=== PATIENT | female | born 1980 | race Caucasian/White ===

== ENCOUNTER 2017-02-03 05:58 | Emergency (ER) | payer MEDICAID ==
[2017-02-03] MEDS ORDERED: ONDANSETRON 4 MG/2 ML VIAL IVP STA ×2 (06:12→08:44)
[2017-02-03] MEDS ORDERED: MORPHINE 2 MG/ML SYRINGE IVP STA ×2 (06:12→06:45)
[2017-02-03] MEDS ORDERED: SODIUM CHLORIDE 0.9% 1,000 ML IV ONE (06:12)
[2017-02-03] MEDS ORDERED: MORPHINE 2 MG/ML SYRINGE ONE ×2 (06:14→06:46)
[2017-02-03] MEDS ORDERED: ONDANSETRON 4 MG/2 ML VIAL ONE ×2 (06:14→08:13)
[2017-02-03 06:25] LABS: BASOPHILS % (AUTO) 0.2 %; EOSINOPHILS # (AUTO) 0.1 10^3/uL (0.0-0.7); EOSINOPHILS % (AUTO) 0.9 %; HCT - HEMATOCRIT 47.6 % (37.0-47.0); HGB - HEMOGLOBIN 16.5 g/dL (12.0-16.0); LYMPHOCYTES # (AUTO) 0.5 10^3/uL (1.5-3.5); LYMPHOCYTES % (AUTO) 3.7 %; MEAN CORPUSCULAR HEMOGLOBIN 32.5 pg (27.0-31.0); MEAN CORPUSCULAR HGB CONC 34.8 g/dL (32.0-36.0); MEAN CORPUSCULAR VOLUME 93.6 fL (81.0-99.0); MEAN PLATELET VOLUME 8.5 fL (7.9-10.8); MONOCYTES # (AUTO) 0.7 10^3/uL (0.0-1.0); MONOCYTES % (AUTO) 5.3 %; NEUTROPHILS # (AUTO) 12.6 10^3/uL (1.5-6.6); NEUTROPHILS % (AUTO) 89.9 %; NUCLEATED RED BLOOD CELLS AUTO 0.1 /100WBC; RED BLOOD COUNT 5.08 10^6/uL (4.20-5.40); RED CELL DISTRIBUTION WIDTH 12.8 % (12.0-15.0)
[2017-02-03 06:35] LABS: ALBUMIN/GLOBULIN RATIO 1.6 (1.0-2.2); CALCIUM 9.6 mg/dL (8.5-10.3); CREATININE 0.8 mg/dL (0.4-1.0); POTASSIUM 3.7 mmol/L (3.5-5.0); TOTAL PROTEIN 7.7 g/dL (6.7-8.2)
[2017-02-03 07:05] LABS: BILIRUBIN,URINE NEGATIVE (NEGATIVE); PH,URINE 7.5 PH (5.0-7.5)
[2017-02-03 07:15] LABS: HCG UR QUAL NEGATIVE; UA w/ MICROSCOPIC CHARGE YES
[2017-02-03 07:16] LABS: UR CULTURE IF IND NOT INDICATED
[2017-02-03] MEDS ORDERED: HYDROmorphone 1 MG/ML SYRINGE IVP STA (07:18)
--- NOTE | 2017-02-03 07:20 | ED Physician Documentation ---
History of Present Illness - Stated complaint Stated Complaint: ABDOMINAL PAIN - Chief complaint Chief Complaint: Abd Pain - Additonal information Additional information: hx from pt 36 y/o f no prior surgery no travel no bad food no sick contacts upper abd pain NV since midnight no fever + chills no diarrhea no dysuria no hematuria pain is constant with waves of more severe pain rad to mid right back and to chest Review of Systems Constitutional: reports: Chills. denies: Fever Throat: denies: Sore throat Cardiac: reports: Chest pain / pressure (rad from abd) Respiratory: denies: Dyspnea, Cough GI: reports: Abdominal Pain, Nausea, Vomiting. denies: Diarrhea : denies: Dysuria, Hematuria Endocrine: denies: Easy bruising / bleeding Immunocompromised: denies: Immunocompromised PD PAST MEDICAL HISTORY - Past Surgical History Past Surgical History: No - Present Medications Home Medications: Ambulatory Orders Medication Instructions Recorded Confirmed Ondansetron Odt [Zofran] 4 mg TL Q6H PRN #10 tablet 02/03/17 Promethazine Supp [Phenergan Supp] 25 mg [place] Q6H PRN #10 supp 02/03/17 Sucralfate 1 gm PO ACHS #120 tablet 02/03/17 raNITIdine [Zantac] 150 mg PO BID #60 tablet 02/03/17 - Allergies Allergies/Adverse Reactions: Allergies Allergy/AdvReac Type Severity Reaction Status Date / Time Penicillins Allergy Unknown Verified 03/11/15 10:15 - Social History Does the pt smoke?: Yes Smoking Status: Current every day smoker Does the pt drink ETOH?: Yes Does the pt have substance abuse?: No - POLST Patient has POLST: No PD ED PE NORMAL - Vitals Vital signs reviewed: Yes - General General: Alert and oriented X 3 - HEENT HEENT: PERRL - Neck Neck: Supple, no meningeal sign - Cardiac Cardiac: RRR - Respiratory Respiratory: No respiratory distress, Clear bilaterally - Abdomen Abdomen: Soft, Other (TTP across upper abd mid to ruq > luq) - Derm Derm: Normal color - Extremities Extremities: No deformity - Neuro Neuro: Alert and oriented X 3 Results - Vitals Vitals: Vital Signs - 24 hr 02/03/17 02/03/17 02/03/17 06:07 06:19 06:42 Temperature 36.5 C Heart Rate 98 101 H 98 Respiratory 20 22 16 Rate Blood Pressure 125/86 H 129/108 H 112/76 O2 Saturation 100 100 100 02/03/17 02/03/17 02/03/17 07:13 07:33 08:17 Temperature Heart Rate 99 100 100 Respiratory 16 16 99 H Rate Blood Pressure 96/74 98/60 100/58 L O2 Saturation 100 100 02/03/17 10:04 Temperature Heart Rate 82 Respiratory 20 Rate Blood Pressure 108/73 O2 Saturation 100 Oxygen O2 Source Room air - Labs Labs: Laboratory Tests 02/03/17 02/03/17 02/03/17 06:13 06:13 06:13 WBC 14.0 H RBC 5.08 Hgb 16.5 H Hct 47.6 H MCV 93.6 MCH 32.5 H MCHC 34.8 RDW 12.8 Plt Count 209 MPV 8.5 Neut # 12.6 H Lymph # 0.5 L Desha # 0.7 Eos # 0.1 Baso # 0.0 Absolute Nucleated RBC 0.01 Nucleated RBCs 0.1 Sodium 139 Potassium 3.7 Chloride 106 Carbon Dioxide 21 Anion Gap 12.0 BUN 16 Creatinine 0.8 Estimated GFR (MDRD) 82 L Glucose 128 H Lactic Acid Calcium 9.6 Total Bilirubin 1.0 AST 21 ALT 22 Alkaline Phosphatase 56 Total Protein 7.7 Albumin 4.7 Globulin 3.0 Albumin/Globulin Ratio 1.6 Lipase 30 Serum HCG, Qual NEGATIVE Urine Color Urine Clarity Urine pH Ur Specific [place] Urine Protein Urine Glucose (UA) Urine Ketones Urine Occult Blood Urine Nitrite Urine Bilirubin Urine Urobilinogen Ur Leukocyte Esterase Urine RBC Urine WBC Ur Squamous Epith Cells Urine Bacteria Ur Microscopic Review Urine Culture Comments Urine HCG, Qual 02/03/17 02/03/17 06:28 06:50 WBC RBC Hgb Hct MCV MCH MCHC RDW Plt Count MPV Neut # Lymph # Desha # Eos # Baso # Absolute Nucleated RBC Nucleated RBCs Sodium Potassium Chloride Carbon Dioxide Anion Gap BUN Creatinine Estimated GFR (MDRD) Glucose Lactic Acid 1.7 Calcium Total Bilirubin AST ALT Alkaline Phosphatase Total Protein Albumin Globulin Albumin/Globulin Ratio Lipase Serum HCG, Qual Urine Color YELLOW Urine Clarity HAZY Urine pH 7.5 Ur Specific [place] 1.020 Urine Protein NEGATIVE Urine Glucose (UA) NEGATIVE Urine Ketones 40 H Urine Occult Blood NEGATIVE Urine Nitrite NEGATIVE Urine Bilirubin NEGATIVE Urine Urobilinogen 0.2 (NORMAL) Ur Leukocyte Esterase SMALL H Urine RBC 0-5 Urine WBC 6-10 H Ur Squamous Epith Cells MOD Squamous H Urine Bacteria Few Ur Microscopic Review INDICATED Urine Culture Comments NOT INDICATED Urine HCG, Qual NEGATIVE - Rads (name of study) ruq sono Radiology: See rad report (nl no gallstones) CT abd pelvis Radiology: See rad report (fluid dilated loops small bowel and non dilated right hemicolon ? enteritis but no SBO, nl appendix, 2.3 cm collapsing left ovarian cyst or follicel, 13 cm splenomegaly) Departure - Departure Disposition: Home, Self Care Clinical Impression: Abdominal pain Qualifiers: Abdominal location: upper abdomen, unspecified Qualified Code(s): R10.10 - Upper abdominal pain, unspecified Vomiting Qualifiers: Vomiting type: unspecified Vomiting Intractability: non-intractable Nausea presence: with nausea Qualified Code(s): R11.2 - Nausea with vomiting, unspecified Condition: Good Instructions: ED Gastritis, ED Epigastric Pain [facility] Follow-Up: Edgardo Dodd MD [Provider Admit Priv/Credential] - (for further evaluation and consideration of endoscopy ) Prescriptions: Promethazine Supp [Phenergan Supp] 25 mg VT Q6H PRN #10 supp PRN Reason: vomiting Sucralfate 1 gm PO ACHS #120 tablet raNITIdine [Zantac] 150 mg PO BID #60 tablet Ondansetron Odt [Zofran] 4 mg TL Q6H PRN #10 tablet PRN Reason: Nausea / Vomiting Comments: Both the CT scan and the ultrasound were reassuring. No bowel blockage/perforation/abscess, no gallstones no pancreatitis, no kidney stones or kidney infection, no aneurysm The only abnormalities noted were an enlarged spleen (that was not very tender on exam) and a collapsing left ovarian cyst (which would not be likely to cause upper abdominal pain) Given the reassuring work up ruling out emergent problems needing surgery admission or antibiotics, I think it is safe for you to go home from the ER for today - but you will need follow up for further evaluation such as endoscopy to continue to try and determine what is causing you to feel so bad. You may have a stomach virus or gastritis, but it is important to follow up for a recheck and to pursue further work up if not improving with the medications I prescribed Forms: Activity restrictions
[2017-02-03] MEDS ORDERED: HYDROmorphone 1 MG/ML SYRINGE ONE (07:27)
--- NOTE | 2017-02-03 08:36 | Ultrasound Preliminary Report ---
Exam: US Abdomen Limited IMPRESSION: Normal. No cholelithiasis or cholecystitis. [facility] SITE ID: [id number]
--- NOTE | 2017-02-03 08:39 | Ultrasound Report ---
EXAM: ABDOMEN ULTRASOUND LIMITED, RUQ EXAM DATE: 02/03/2017 08:05 AM. CLINICAL HISTORY: Upper abdominal pain radiating to R back with nausea and vomiting, evaluate gallbla dder. COMPARISON: None. TECHNIQUE: Real-time scanning was performed with static images obtained. Philosophy Instructor notes patient is on pain medication. FINDINGS: Liver: Normal in size and echotexture. 16.6 cm. Main portal vein flow: Hepatopetal. Gallbladder: Normal. No stones, wall thickening, or sonographic Jensen's sign. Pain medication could limit evaluation of sonographic Jensen sign. Biliary System: CBD measures 5 mm. No intrahepatic or extrahepatic ductal dilatation. Other: Right kidney measured 11.16 longitudinally. No right hydronephrosis. IMPRESSION: Normal. No cholelithiasis or cholecystitis. [facility] Referring Provider Line: [phone] SITE ID: [id number]
[2017-02-03] MEDS ORDERED: SUCRALFATE 1 GM/10 ML UDC PO STA (09:11)
[2017-02-03] MEDS ORDERED: FAMOTIDINE 20 MG/50 ML 50 ML IV ONE ×2 (09:11→09:13)
[2017-02-03] MEDS ORDERED: SUCRALFATE 1 GM/10 ML UDC ONE (09:13)
[2017-02-03] MEDS ORDERED: PROMETHAZINE 25 MG/1 ML VIAL ONE (09:18)
[2017-02-03] MEDS ORDERED: PROMETHAZINE INJ 25 MG in SODIUM CHLORIDE 0.9% 50 ML IV STA (09:22)
[2017-02-03] MEDS ORDERED: IOPAMIDOL-300 100 ML VIAL IVP ONE (10:20)
--- NOTE | 2017-02-03 10:50 | CT Preliminary Report ---
Exam: CT Abdomen/Pelvis W/ IMPRESSION: Fluid is noted filling the distal small bowel loops and nondilated right hemicolon. Question enteriti s. No bowel obstruction evident. Normal appendix. A 2.3 cm collapsing left ovarian cyst or follicle. 13 cm splenomegaly. [facility] SITE ID: [id number]
[2017-02-03 12:13] VITALS: BP 101/60
--- NOTE | 2017-02-03 12:37 | CT Report ---
EXAM: CT ABDOMEN AND PELVIS EXAM DATE: 02/03/2017 10:19 AM. CLINICAL HISTORY: Severe upper abdominal pain, elevated WBC, negative sonogram. COMPARISONS: None. TECHNIQUE: Routine helical CT imaging was performed through the abdomen and pelvis. IV contrast: 100 mL [id number]. Enteric contrast: No. Reconstructions: Coronal and sagittal. In accordance with CT protocol optimization, one or more of the following dose reduction techniques w ere utilized for this exam: automated exposure control, adjustment of mA and/or KV based on patient s ize, or use of iterative reconstructive technique. FINDINGS: Lung Bases: Unremarkable. Liver: Normal. No masses. Gallbladder/Bile Ducts: Unremarkable. Spleen: 13 cm splenomegaly. Pancreas: Normal. Adrenal Glands: Normal. Kidneys: Several small hypodensities are too small to characterize. Probable cysts.. No suspicious ma sses or hydronephrosis. Peritoneal Cavity/Bowel: Fluid-filled, nondilated distal small bowel loops and right hemicolon. The a ppendix is well visualized and normal. Pelvic Organs: 2.3 cm collapsing left ovarian cyst or follicle. Unremarkable uterus. Bladder is colla psed. Vasculature: No aneurysms or other significant abnormality. Bones: No significant abnormality. Other: None. IMPRESSION: 1. Fluid is noted filling the distal small bowel loops and nondilated right hemicolon. Question enter itis. No bowel obstruction evident. 2. Normal appendix. 3. A 2.3 cm collapsing left ovarian cyst or follicle. 4. 13 cm splenomegaly. [facility] Referring Provider Line: [phone] SITE ID: [id number]
== END 2017-02-03 12:19 | disposition home or self-care (01) ==
LOC: ED 05:58
DX: R10.10 Upper abdominal pain, unspecified (principal); R11.2 Nausea with vomiting, unspecified; F17.200 Nicotine dependence, unspecified, uncomplicated
CPT/HCPCS: 36415; 74177; 76705; 80053; 81001; 81025; 83605; 83690; 84703; 85025; 96361; 96374; 96375; 96376; 99284; J1170; Q9967; 81003; 87086

== ENCOUNTER 2020-04-15 15:45 | Emergency (ER) | payer SELFPAY ==
[2020-04-15 16:09] VITALS: BP 128/87
[2020-04-15] MEDS ORDERED: BUFFERED LIDOCAINE 10 ML SYRINGE SUBQ STA (16:17)
--- NOTE | 2020-04-15 16:49 | ED Physician Documentation ---
PD HPI SKIN - Stated complaint Stated Complaint: RT ARMPIT WOUND PX - Chief complaint Chief Complaint: Wound - History obtained from History obtained from: Patient, Family - History of Present Illness Timing - onset: Yesterday Timing - duration: Days (1) Timing - details: Gradual onset, Still present Location: Other (right axilla) Quality / character: Painful, Burning, Discolored, Other (bleeding) Associated symptoms: No: Fever, Myalgias, Joint pain, Headache, Facial swelling, Dyspnea, Abd pain, N/V/D Similar symptoms before: Has not had sx before Recently seen: Not recently seen - Additional information Additional information: 39-year-old female has a skin tag under her right axilla that yesterday swelled became super painful and the tip of the turned black and then began to bleed. She had a very rough night last night and continues to have significant pain associated with it she was unable to go to work today secondary to the pain associated with this. 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 : None HEENT: None Psych: None Musculoskeletal: None Derm: None - Past Surgical History Past Surgical History: No - Present Medications Home Medications: Ambulatory Orders Medication Instructions Recorded Confirmed Ondansetron Odt [Zofran] 4 mg TL Q6H PRN #10 tablet 02/03/17 Promethazine Supp [Phenergan Supp] 25 mg [place] Q6H PRN #10 supp 02/03/17 Sucralfate 1 gm PO ACHS #120 tablet 02/03/17 raNITIdine [Zantac] 150 mg PO BID #60 tablet 02/03/17 - Allergies Allergies/Adverse Reactions: Allergies Allergy/AdvReac Type Severity Reaction Status Date / Time Penicillins Allergy Unknown Verified 04/15/20 16:01 - Social History Does the pt smoke?: Yes Smoking Status: Current every day smoker Does the pt drink ETOH?: Yes ETOH Use: Liquor Does the pt have substance abuse?: No - Immunizations Immunizations are current?: No Immunizations: TDAP >10years/unknown - POLST Patient has POLST: No PD ED PE NORMAL - Vitals Vital signs reviewed: Yes (hypertensive ) - General General: Alert and oriented X 3, Well developed/nourished, Other (appears to be in pain ) - HEENT HEENT: Atraumatic, PERRL, EOMI - Respiratory Respiratory: No respiratory distress - Derm Derm: Normal color, Warm and dry - Extremities Extremities: No deformity, Other (In the right axilla there is a pedunculated skin tag the tip of this is infarcted and has evidence of bleeding. The skin tag is markedly tender there is no mass under the skin in the axilla and no drainage from the area. The area does not look infected in any way.) - Neuro Neuro: Alert and oriented X 3, car runner 2-12 intact, No motor deficit, No sensory deficit, Normal speech Eye Opening: Spontaneous Motor: Obeys Commands Verbal: Oriented GCS Score: 15 - Psych Psych: Normal mood, Normal affect Results - Vitals Vitals: Vital Signs - 24 hr 04/15/20 04/15/20 15:57 16:08 Temperature 36.9 C Heart Rate 85 78 Respiratory 16 18 Rate Blood Pressure 130/87 H 128/87 H O2 Saturation 96 99 Oxygen O2 Source Room air Procedures - General procedure General procedure: Skin tag removal: With the use of Hibiclens the area around the skin tag was cleansed as well as skin tag itself the area is infiltrated with 1% lidocaine bu ffered with bicarbonate and the area is rinsed with saline draped in a sterile fashion the pedunculated skin tag is grasped with a forceps and with sharp dissection at the base this is cut off from the skin. Patient tolerates this well and a single suture of 5-0 Ethilon is placed to close the wound with good closure. When the lidocaine wears off the patient has no pain.Laceration is 1 cm PD MEDICAL DECISION MAKING - ED course Complexity details: considered differential, d/w patient, d/w family ED course: 39-year-old female with a torsed pedunculated skin tag that has infarcted had significant pain associated with this and after removal of the skin tag she is pain-free. Departure - Departure Disposition: 01 Home, Self Care Clinical Impression: Inflamed acrochordon Condition: Stable Instructions: ED Laceration All Follow-Up: [facility] [Provider Group] Comments: The suture should be removed in 7 days.
== END 2020-04-15 17:13 | disposition home or self-care (01) ==
LOC: ED 15:45
DX: L91.8 Other hypertrophic disorders of the skin (principal); L08.89 Other specified local infections of the skin and subcutaneous tissue; F17.200 Nicotine dependence, unspecified, uncomplicated
CPT/HCPCS: 11200; 99281; 99282

== ENCOUNTER 2021-04-03 08:30 | Outpatient (CLI) | payer SELFPAY | END 2021-04-03 23:59 | disposition home or self-care (01) | LOC: LAB.R 08:30 | PROVIDERS: ATTEND Physician Assistant Medical | DX: R05 Cough (principal); Z20.822 Contact with and (suspected) exposure to COVID-19 ==

== ENCOUNTER 2021-12-28 17:16 | Emergency (ER) | payer SELFPAY ==
[2021-12-28] MEDS ORDERED: ONDANSETRON 4 MG/2 ML VIAL IVP STA (17:31)
[2021-12-28] MEDS ORDERED: KETOROLAC 15 MG/ML VIAL IVP STA (17:31)
[2021-12-28] MEDS ORDERED: SODIUM CHLORIDE 0.9% 1,000 ML IV STA (17:31)
[2021-12-28] MEDS ORDERED: HYDROmorphone 1 MG/ML CARPUJECT IVP STA (17:31)
--- NOTE | 2021-12-28 17:33 | ED Physician Documentation ---
PD HPI ABD PAIN - Stated complaint Stated Complaint: ABD & BACK PX - Chief complaint Chief Complaint: Abd Pain - History obtained from History obtained from: Patient - Additional information Additional information: Gradual onset severe diffuse abdominal pain and left flank pain starting yesterday but much worse today. It is associated with temperature of 102 at home. She said diarrhea. No urinary complaints or hematuria. She has a history of kidney stones and kidney infections as well as ulcers. No history of abdominal surgeries. 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 : None HEENT: None Psych: None Musculoskeletal: None Derm: None - Past Surgical History Past Surgical History: No - Present Medications Home Medications: Ambulatory Orders Medication Instructions Recorded Confirmed Ondansetron Odt [Zofran] 4 mg TL Q6H PRN #10 tablet 02/03/17 Promethazine Supp [Phenergan Supp] 25 mg [place] Q6H PRN #10 supp 02/03/17 Sucralfate 1 gm PO ACHS #120 tablet 02/03/17 raNITIdine [Zantac] 150 mg PO BID #60 tablet 02/03/17 Omeprazole 40 mg PO DAILY #30 cap 12/28/21 Oxycodone HCl/Acetaminophen 1 - 2 each PO Q6H PRN #14 tablet 12/28/21 [Percocet 5-325 mg Tablet] - Allergies Allergies/Adverse Reactions: Allergies Allergy/AdvReac Type Severity Reaction Status Date / Time Penicillins Allergy Unknown Verified 12/28/21 17:21 - Social History Does the pt smoke?: Yes Smoking Status: Current every day smoker Does the pt drink ETOH?: Yes Does the pt have substance abuse?: No - Immunizations Immunizations are current?: No Immunizations: TDAP >10years/unknown - POLST Patient has POLST: No PD ED PE NORMAL - Vitals Vital signs reviewed: Yes - General General: Other (She appears uncomfortable and is clearly in pain alert cooperative and oriented though.) - HEENT HEENT: PERRL, EOMI - Neck Neck: Supple, no meningeal sign, No bony TTP - Cardiac Cardiac: Other (Tachycardic, regular, no murmur) - Respiratory Respiratory: No respiratory distress, Clear bilaterally - Abdomen Abdomen: Normal bowel sounds, Soft, Other (Mild diffuse abdominal tenderness but severe left flank tenderness.) - Derm Derm: Normal color, Warm and dry - Extremities Extremities: No edema, No calf tenderness / cord - Neuro Neuro: Alert and oriented X 3, Normal speech Results - Vitals Vitals: Vital Signs - 24 hr 12/28/21 12/28/21 12/28/21 17:18 18:03 19:00 Temperature 37.9 C 37.1 C Heart Rate 110 H 95 94 Respiratory 20 20 Rate Blood Pressure 147/99 H 136/98 H 108/85 H O2 Saturation 94 98 98 Oxygen O2 Source Room air - Labs Labs: Laboratory Tests 12/28/21 12/28/21 12/28/21 17:25 17:32 17:32 WBC 10.0 RBC 4.18 L Hgb 13.7 Hct 38.8 MCV 92.8 MCH 32.8 H MCHC 35.3 RDW 12.1 Plt Count 213 MPV 9.2 Neut # (Auto) 7.9 H Lymph # (Auto) 1.[address] # (Auto) 0.6 Eos # (Auto) 0.1 Baso # (Auto) 0.0 Absolute Nucleated RBC 0.00 Nucleated RBC % 0.0 Sodium 135 Potassium 3.3 L Chloride 103 Carbon Dioxide 19 L Anion Gap 13.0 BUN 12 Creatinine 0.7 Estimated GFR (MDRD) 93 Glucose 106 H Lactic Acid Calcium 9.0 Total Bilirubin 0.7 AST 23 ALT 20 Alkaline Phosphatase 75 Total Protein 7.4 Albumin 4.2 Globulin 3.2 Albumin/Globulin Ratio 1.3 Lipase 30 Urine Color YELLOW Urine Clarity HAZY Urine pH 6.0 Ur Specific [place] >=1.030 H Urine Protein NEGATIVE Urine Glucose (UA) NEGATIVE Urine Ketones NEGATIVE Urine Occult Blood LARGE H Urine Nitrite NEGATIVE Urine Bilirubin NEGATIVE Urine Urobilinogen 0.2 (NORMAL) Ur Leukocyte Esterase NEGATIVE Urine RBC 6-10 H Urine WBC 0-3 Ur Squamous Epith Cells FEW Squamous Amorphous Sediment Few Urine Bacteria Few Ur Microscopic Review INDICATED Urine Culture Comments NOT INDICATED Urine HCG, Qual NEGATIVE 12/28/21 17:32 WBC RBC Hgb Hct MCV MCH MCHC RDW Plt Count MPV Neut # (Auto) Lymph # (Auto) [place] # (Auto) Eos # (Auto) Baso # (Auto) Absolute Nucleated RBC Nucleated RBC % Sodium Potassium Chloride Carbon Dioxide Anion Gap BUN Creatinine Estimated GFR (MDRD) Glucose Lactic Acid 1.3 Calcium Total Bilirubin AST ALT Alkaline Phosphatase Total Protein Albumin Globulin Albumin/Globulin Ratio Lipase Urine Color Urine Clarity Urine pH Ur Specific [place] Urine Protein Urine Glucose (UA) Urine Ketones Urine Occult Blood Urine Nitrite Urine Bilirubin Urine Urobilinogen Ur Leukocyte Esterase Urine RBC Urine WBC Ur Squamous Epith Cells Amorphous Sediment Urine Bacteria Ur Microscopic Review Urine Culture Comments Urine HCG, Qual - Rads (name of study) CT abdomen pelvis with IV contrast showing bilateral ovarian cysts likely hemorrhagic on the right and hepatosplenomegaly Radiology: EMP read contemporaneously PD MEDICAL DECISION MAKING - ED course ED course: 41-year-old woman presents with days worth of abdominal and flank pain. Work-up shows ovarian cysts and hepatosplenomegaly, but no surgical emergency. She is feeling much better after meds and close follow-up was advised. We discussed the incidental findings on CT and follow-up for those as well. Departure - Departure Disposition: Home, Self Care Clinical Impression: Ovarian cyst, Abdominal pain Condition: Good Record reviewed to determine appropriate education?: Yes Instructions: ED Abdominal Pain Female Non-Specific Abdominal Pain Prescriptions: Omeprazole 40 mg PO DAILY #30 cap Oxycodone HCl/Acetaminophen [Percocet 5-325 mg Tablet] 1 - 2 each PO Q6H PRN #14 tablet PRN Reason: pain Comments: I sent prescriptions electronically to [email or web address] in [place]. As discussed work-up shows today basically normal blood work, some blood in your urine but no signs of infection. CAT scan showing ovarian cysts with what looks like a bleeding cyst on the right and a large liver and spleen. Follow-up with your primary care physician within the week to discuss, further work-up may be necessary to assess why you have a large liver and spleen. Also spent I suspect they may want to check an ultrasound of your pelvis in about 6 weeks to make sure the ovarian cysts have resolved. Return if worsening or if your symptoms change. I am prescribing a short course of narcotic pain medication for you. These are potentially dangerous and addictive medications that should be used carefully. These medications may constipate you. Take an [id number] stool softener (docusate) twice daily with plenty of water while taking these medications. If you go 24 hours without a bowel movement, take [id number] miralax, per package instructions. Do not drink or drive while taking these medications. If you received narcotic or sedating medications while in the emergency department, do not drive for 24 hours. Store this medication in a safe, secure place and out of reach of children. It is a violation of federal law to give or sell this medication to another person or to use in a manner other than prescribed. The ED will not refill narcotic prescriptions, including prescriptions lost or stolen. To dispose of unwanted medications: 1. [facility] at [address] in [place] has a medication drop box. They accept prescription medications (in pill form) Friday through Friday 9:00 a.m. to 5:00 p.m. 2. The [facility] accepts prescription medications (in pill form only) for disposal year round. Call for more information. 3. Contact the [facility] for the next [facility] sponsored prescription drug collection event. , [phone], or [phone]; Note that many narcotic pain relievers also contain Tylenol/acetaminophen. Please ensure that your total dose of acetaminophen from all sources does not exceed 3 g (3000 mg) per day. Forms: Activity restrictions Discharge Date/Time: 12/28/21 19:00
[2021-12-28 17:39] LABS: BILIRUBIN,URINE NEGATIVE (NEGATIVE); GLUCOSE, URINE (UA) NEGATIVE (NEGATIVE); KETONES,URINE (UA) NEGATIVE (NEGATIVE); LEUKOCYTE ESTERASE, URINE NEGATIVE (NEGATIVE); NITRITE,URINE NEGATIVE (NEGATIVE); OCCULT BLOOD,URINE LARGE (NEGATIVE); PROTEIN,URINE NEGATIVE (NEGATIVE); UROBILINOGEN,URINE 0.2 (NORMAL) E.U./dL (NORMAL)
[2021-12-28 17:40] LABS: BASOPHILS % (AUTO) 0.3 %; EOSINOPHILS # (AUTO) 0.1 10^3/uL (0.0-0.7); EOSINOPHILS % (AUTO) 0.8 %; HCT - HEMATOCRIT 38.8 % (37.0-47.0); HGB - HEMOGLOBIN 13.7 g/dL (12.0-16.0); LYMPHOCYTES # (AUTO) 1.3 10^3/uL (1.5-3.5); LYMPHOCYTES % (AUTO) 13.2 %; MEAN CORPUSCULAR HEMOGLOBIN 32.8 pg (27.0-31.0); MEAN CORPUSCULAR HGB CONC 35.3 g/dL (32.0-36.0); MEAN CORPUSCULAR VOLUME 92.8 fL (81.0-99.0); MEAN PLATELET VOLUME 9.2 fL (7.9-10.8); MONOCYTES # (AUTO) 0.6 10^3/uL (0.0-1.0); MONOCYTES % (AUTO) 6.3 %; NEUTROPHILS # (AUTO) 7.9 10^3/uL (1.5-6.6); PLT - PLATELET COUNT 213 10^3/uL (130-450); RED BLOOD COUNT 4.18 10^6/uL (4.20-5.40); RED CELL DISTRIBUTION WIDTH 12.1 % (12.0-15.0)
[2021-12-28 17:41] LABS: CLARITY,URINE HAZY (CLEAR); HCG UR QUAL NEGATIVE
[2021-12-28 17:49] LABS: AMORPHOUS SEDIMENT,UR Few /LPF; BACTERIA,URINE Few /HPF (None Seen); SQUAMOUS EPITHELIAL CELL,UR FEW Squamous (<= Few); WBC,URINE 0-3 /HPF (0-5)
[2021-12-28 17:51] LABS: ALBUMIN 4.2 g/dL (3.2-5.5); ALBUMIN/GLOBULIN RATIO 1.3 (1.0-2.2); BILIRUBIN,TOTAL 0.7 mg/dL (0.2-1.0); CREATININE 0.7 mg/dL (0.4-1.0); POTASSIUM 3.3 mmol/L (3.5-5.0); TOTAL PROTEIN 7.4 g/dL (6.7-8.2)
[2021-12-28] MEDS ORDERED: IOPAMIDOL-300 100 ML VIAL ONE (18:19)
[2021-12-28] MEDS ORDERED: IOPAMIDOL-300 100 ML VIAL IVP ONE (18:30)
--- NOTE | 2021-12-28 18:36 | CT Report ---
PROCEDURE: Abdomen/Pelvis W INDICATIONS: iv only, abd pain, fever CONTRAST: IV CONTRAST: Isovue 300 ml: 100 PO CONTRAST: *NO PO CONTRAST TECHNIQUE: After the administration of IV contrast, 5 mm thick sections acquired from the diaphragms to the symp hysis. 5 mm thick coronal and sagittal reformats were acquired. For radiation dose reduction, the f ollowing was used: automated exposure control, adjustment of mA and/or kV according to patient size. COMPARISON: CT abdomen pelvis 02/03/2017 FINDINGS: Image quality: Excellent. ABDOMEN: Lung bases: Lung bases are clear. Heart size is normal. Solid organs: Liver is enlarged measuring 21.7 cm with steatosis, unchanged. The spleen is enlarged in size measuring 13.6 cm, unchanged. Gallbladder and is unremarkable Biliary system is non dilated. Pancreas enhances normally. No adrenal nodules. Kidneys demonstrate normal size and enhancement, without hydronephrosis. Peritoneum and bowel: Bowel loops demonstrate normal wall thickness and caliber. No free fluid or a ir. Nodes and vessels: No retroperitoneal or mesenteric adenopathy by size criteria. Aorta and inferior vena cava are normal in size. Miscellaneous: No ventral hernias. PELVIS: Genitourinary: Bladder wall thickness is normal. Low-attenuation foci are present within the adnexa l regions bilaterally. It is ring-enhancing on the right measuring 3 cm. Miscellaneous: No inguinal hernias or adenopathy. Bones: No suspicious bony lesions. No vertebral body compression fractures. IMPRESSION: Bilateral ovarian cysts appearing hemorrhagic on the right. Hepatosplenomegaly. Reviewed by: Delicia Medina MD on 12/28/2021 6:35 PM PDT Approved by: Delicia Medina MD on 12/28/2021 6:35 PM PDT Station ID: [id number]
[2021-12-28 19:03] VITALS: BP 108/85
== END 2021-12-28 19:00 | disposition home or self-care (01) ==
LOC: ED 17:16
DX: N83.202 Unspecified ovarian cyst, left side (principal); N83.201 Unspecified ovarian cyst, right side; F17.200 Nicotine dependence, unspecified, uncomplicated
CPT/HCPCS: 36415; 74177; 80053; 81001; 81025; 83605; 83690; 85025; 87040; 96374; 96375; 99284; J1170; Q9967; 81003; 87086